=== PATIENT | male | born 1995 | race Asian ===

== ENCOUNTER 2020-12-28 20:54 | Emergency (ER) | payer OTHER ==
[~2020-12-28] VITALS: Ht 170.2 cm; Wt 71.7 kg
[2020-12-28] MEDS ORDERED: FISH OIL1 C10 PO (21:19)
[2020-12-28 22:19] LABS: PLATELET COUNT 205 K/uL (142-355)
[2020-12-28 22:31] LABS: POTASSIUM 3.7 mmol/L (3.6-5.2); SODIUM 140 mmol/L (136-145)
[2020-12-29 19:33] LABS: PLATELET COUNT 212 K/uL (142-355)
[2020-12-30 13:30] VITALS: BP 106/71; TEMP 97.8
== END 2020-12-30 13:30 | disposition still patient (30) ==
LOC: ED 20:54
PROVIDERS: Family Medicine
DX: R44.0 Auditory hallucinations (principal); F22 Delusional disorders; Z11.52 Encounter for screening for COVID-19
CPT/HCPCS: 36415; 80053; 80307; 80320; 80329; 81000; 85027; 87635; 93005; 96372; 99285; J0696; J1200; J1630; J3486; U0003